=== PATIENT | female | born 1985 | race Caucasian/White ===

== ENCOUNTER → 2016-07-24 | Outpatient (CLI) | payer BC | END | disposition home or self-care (01) | LOC: C.LABPVFM 20:00 | PROVIDERS: ATTEND Nurse Practitioner Family | DX: R10.9 Unspecified abdominal pain (principal) ==

== ENCOUNTER → 2016-08-20 | Day surgery (SDC) | payer BC ==
[2016-08-09 09:34] VITALS: Ht 166.4 cm; Wt 80.0 kg
[~2016-08-20] VITALS: Ht 166.4 cm; Wt 80.0 kg
[~2016-08-20] MED LIST: LIDOCAINE HCL 2% 2 ML VIAL (20MG/ML) ONE; MIDAZOLAM HCL 1 MG/ML 2ML VIAL ONE; ONDANSETRON INJ 2 MG/ML 2 ML VIAL ONE; PROPOFOL IV EMULSION 10 MG/ML 20 ML VIAL IV ONE; SODIUM CHLORIDE 0.9% 500ML 500 ML IV ONE
--- NOTE | 2016-08-20 09:06 | Endo History and Physical ---
History & Physical Date of Service: Aug 20, 2016. Chief Complaint: Diarrhea, abdominal pain, fecal urgency Referring Physician: Francia Jarrett History of Present Illness 30 yo CF who presents for Colonoscopy secondary to abdominal pain and diarrhea. Past Surgical History Hx Cardiac Surgery: No Hx Internal Defibrillator: No Hx Pacemaker: No Hx Abdominal Surgery: No Hx of Implantable Prosthesis: No Hx Post-Op Nausea and Vomiting: No Hx Cancer Surgery: No Hx Thoracic Surgery: No Hx Orthopedic: No Hx Urinary Tract Surgery: No Family History Polyp Social History Smoking Status: Never Smoker Hx Substance Use: No Hx Alcohol Use: No Allergies Coded Allergies: No Known Allergies (Verified , 08/20/16) Current Medications Reported Home Medications Medications Dose Route/Sig Max Daily Dose Days Date Category No Active Prescriptions or Reported Medications Rx Vital Signs Weight (Kilograms): 80 Height (Feet): 5 Height (Inches): 5.5 Date Time Temp Pulse Resp B/P Pulse Ox O2 Delivery O2 Flow Rate FiO2 08/20/16 08:42 36.6 72 18 157/89 100 Room Air Physical Exam General Appearance: WD/WN, no apparent distress Respiratory/Chest: Auscultation: breath sounds normal Cardiovascular: Heart Auscultation: RRR Abdomen: Bowel Sounds: normal Inspection & Palpation: soft, non-distended, no tenderness, guarding & rebound Assessment and Plan Assessment: 30 yo CF who presents for Colonoscopy secondary to abdominal pain and diarrhea. Plan: Proceed with colonoscopy.
--- NOTE | 2016-08-20 09:30 | Discharge Instructions ---
Endoscopy Patient Instructions Date / Procedure(s) Performed Aug 20, 2016. Colonoscopy Allergy Information Coded Allergies: No Known Allergies (Verified , 08/20/16) Discharge Date / Findings Aug 20, 2016. Random colon biopsies Stool studies collected Medication Instructions OK to resume all medications today as prescribed Reported Home Medications Medications Dose Route/Sig Max Daily Dose Days Date Category No Active Prescriptions or Reported Medications Rx Provider Instructions Activity Restrictions - No exercising or heavy lifting for 24 hours. - Do not drink alcohol the day of the procedure. - Do not drive a car or operate machinery until the day after the procedure. - Do not make any important decisions or sign important papers in 24 hours after the procedure. Following Day: - Return to full activity which may include returning to work/school. Diet Start your diet with liquids and light foods (jello, soup, juice, toast). Then eat your usual diet if not nauseated. Treatment For Common After Affects For mild abdominal pain, bloating, or excessive gas: - Rest - Eat lightly - Lie on right side Follow-Up Information Follow-up with NA as scheduled Anesthesia Information What You Should Know You have had a procedure that required some medicine to reduce anxiety and discomfort. This treatment is called moderate sedation. After receiving the treatment, you may be sleepy, but you will be able to breathe on your own. The effects of the treatment may last for several hours. Follow these instructions along with Activity/Diet recommendations noted above: * Do NOT do anything where dizziness or clumsiness would be dangerous. * Rest quietly at home today, then you can be up and about tomorrow. * Have a responsible person stay with you the rest of today. * You may have had an I.V. today. If so, you may take the dressing off later today. Recommendations Call your doctor if: * Trouble breathing * Continuous vomiting for more than 24 hours * Temperature above 101 degrees * Severe abdominal pain or bloating * Pain not relieved by pain medicine ordered * There is increased drainage or redness from any incision * A large amount of rectal bleeding greater than 2-3 tablespoons. (If you had a polyp/s removed or have hemorrhoids, a small amount of blood - from the rectum is to be expected.) * You have any unanswered questions or concerns. IN THE EVENT OF A SERIOUS EMERGENCY, GO TO THE NEAREST EMERGENCY ROOM Your discharge instructions were prepared by provider Sumeet G. Case. Patient Instructions Signature Page Wanda Flo Patient (or Guardian) Signature/Date: I have read and understand the instructions given to me by my caregivers. Caregiver/RN/Doctor Signature/Date: The above-named patient and/or guardian has received patient instructions on this date. + Original Patient Signature Page (only) stays with chart. Please make copy for patient.
--- NOTE | 2016-08-20 09:37 | GI REPORT ---
Procedure Date: 08/20/2016 9:02 AM Procedure: Colonoscopy Indications: Generalized abdominal pain, Chronic diarrhea Medicines: Monitored Anesthesia Care Complications: No immediate complications. Estimated Blood Loss: Estimated blood loss: none. Procedure: Pre-Anesthesia Assessment: - Prior to the procedure, a History and Physical was performed, and patient medications and allergies were reviewed. The patient's tolerance of previous anesthesia was also reviewed. The risks and benefits of the procedure and the sedation options and risks were discussed with the patient. All questions were answered, and informed consent was obtained. Prior Anticoagulants: The patient has taken no previous anticoagulant or antiplatelet agents. ASA Grade Assessment: II - A patient with mild systemic disease. After reviewing the risks and benefits, the patient was deemed in satisfactory condition to undergo the procedure. After I obtained informed consent, the scope was passed under direct vision. Throughout the procedure, the patient's blood pressure, pulse, and oxygen saturations were monitored continuously. The scope was introduced through the anus and advanced to the terminal ileum. The colonoscopy was performed without difficulty. The patient tolerated the procedure well. The quality of the bowel preparation was good. The terminal ileum, ileocecal valve, appendiceal orifice, and rectum were photographed. Findings: The colon (entire examined portion) appeared normal. Several random biopsies were obtained with cold forceps for histology in the entire colon. Fluid aspiration for cytology was performed. Impression: - The entire examined colon is normal. Fluid aspiration performed. - Several random biopsies were obtained in the entire colon. Recommendation: - Resume previous diet. - Continue present medications. - Repeat colonoscopy for surveillance based on pathology results. - Return to primary care physician as previously scheduled. Sumeet Pollock, DO 08/20/2016 9:35:19 AM This report has been signed electronically. Note Initiated On: 08/20/2016 9:02 AM I attest to the content of the Intraoperative Record and orders documented therein, exceptions below
[2016-08-20 09:59] VITALS: BP 127/87; PULSE 62; O2SAT 99
--- NOTE | 2016-08-20 10:04 | Anesthesiology Progress Note ---
Anesthesia Post Op Note Date & Time Aug 20, 2016 at 10:03 Vital Signs Pain Intensity: 0 Vital Signs Past 12 Hours Date Time Temp Pulse Resp B/P Pulse Ox O2 Delivery O2 Flow Rate FiO2 08/20/16 09:59 62 20 127/87 99 Room Air 08/20/16 09:47 68 20 121/78 98 Room Air 08/20/16 09:31 75 20 112/77 100 Room Air 08/20/16 08:42 36.6 72 18 157/89 100 Room Air Notes Mental Status: alert / awake / arousable, participated in evaluation Pt Amnestic to Procedure: Yes Nausea / Vomiting: adequately controlled Pain: adequately controlled Airway Patency, RR, SpO2: stable & adequate BP & HR: stable & adequate Hydration State: stable & adequate Anesthetic Complications: no major complications apparent
== END | disposition home or self-care (01) ==
LOC: C.GI 08:14
PROVIDERS: ATTEND Internal Medicine
DX: R10.84 Generalized abdominal pain (principal); R19.7 Diarrhea, unspecified

== ENCOUNTER → 2016-09-10 | Outpatient (CLI) | payer BC ==
--- NOTE | 2016-09-10 10:39 | DIAGNOSTIC IMAGING REPORT ---
ABDOMINAL ULTRASOUND, RIGHT UPPER QUADRANT HISTORY: Abdominal pain. Chronic diarrhea of unknown origin. COMPARISON: None. FINDINGS: The liver is sonographically normal. No gallstones are identified. There is no biliary ductal dilatation. The pancreas is sonographically normal although the tail is slightly obscured. There is no right hydronephrosis. IMPRESSION: No significant abnormality identified within the right upper quadrant. Electronically signed by: Erwin Leon M.D. 09/10/2016 10:38 AM Dictated Date/Time: 09/10/2016 10:31 AM
== END | disposition home or self-care (01) ==
LOC: C.ULTR 10:09
PROVIDERS: ATTEND Registered Nurse
DX: K52.9 Noninfective gastroenteritis and colitis, unspecified (principal); R10.13 Epigastric pain

== ENCOUNTER → 2016-10-23 | Outpatient (CLI) | payer BC ==
[2016-10-31 09:31] LABS: CRYPTOSPORIDIUM AG TC 37213 NOT DETECTED (NOT DETECTED); O&P GIARDIA AG NOT DETECTED (NOT DETECTED); O&P SOURCE OTHER-TOTAL
== END | disposition home or self-care (01) ==
LOC: C.LABSPEC 11:01
DX: R19.7 Diarrhea, unspecified (principal)